=== PATIENT | male | born 1965 ===

== ENCOUNTER 2019-06-29 08:23 | Day surgery (SDC) | payer OTHER ==
[2019-06-29] MEDS ORDERED: PROPOFOL 10 MG/ML VIAL IV ONE (08:24)
[2019-06-29] MEDS ORDERED: FENTANYL PF 100MCG/2ML VIAL IV ONE (08:24)
[2019-06-29] MEDS ORDERED: LIDOCAINE 2% MDV (20MG/ML) 20ML VIAL IV ONE (08:24)
--- NOTE | 2019-06-30 12:42 | Operative Note ---
OPERATIONS: 1. ESOPHAGOGASTRODUODENOSCOPY. 2. COLONOSCOPY. PREOPERATIVE DIAGNOSES: 1. Chronic gastroesophageal reflux disease. 2. Colon cancer screening. POSTOPERATIVE DIAGNOSES: 1. Irregular Z line, rule out short-segment Hurley's. 2. Transverse colon polyp. PREPARATION QUALITY: Good to excellent. ESTIMATED BLOOD LOSS: Minimum. SPECIMENS: Transverse colon polyp. PROCEDURE: After informed consent was obtained from the patient, he was placed in the left lateral decubitus position in the endoscopy suite, sedated and monitored by the department of anesthesia. A well-lubricated [id number] gastroscope was placed in the posterior oropharynx under direct visualization and passed to the proximal esophagus. The endoscope was advanced through the proximal, mid, and distal esophagus. The GE junction was irregular suggestive of possible short-segment Hurley's. There were no ulcers, erosions, strictures, varices, or mass lesions seen. The gastric body, antrum, pylorus, duodenal bulb, and sweep were unremarkable. J-turn views of the proximal stomach were unrevealing. The endoscope was then straightened. GE junction biopsies were obtained. The endoscope was removed from the patient with no new findings noted. Digital rectal exam was unremarkable. A well-lubricated [id number] colonoscope was inserted into the rectum and advanced to the cecum. The cecum and cecal bulb were unremarkable. The ileocecal valve and appendiceal orifice were unremarkable. The ascending colon was unrevealing. The transverse colon revealed a 5-6 mm sessile polyp removed with a cold snare and retrieved. The remainder of the transverse colon, descending colon, sigmoid colon, and rectum were unrevealing. J-turn views of the anorectum were unremarkable. The endoscope was straightened, the rectal ampulla deflated, and the endoscope was removed. RECOMMENDATIONS: I would suggest the patient resume his medications and diet. Further surveillance recommendations related to possible Hurley's and colon polyp will be based on histology. If Hurley's is found, he should continue daily PPI and undergo repeat upper endoscopy in 3 years. If the polyp is adenomatous, he will require repeat colonoscopy in 3-5 years. As always, thank you for allowing me to participate in the healthcare of your patients. GISSEL
== END 2019-06-29 09:45 | disposition home or self-care (01) ==
LOC: HOP 08:23
PROVIDERS: ATTEND Internal Medicine Gastroenterology
DX: Z12.11 Encounter for screening for malignant neoplasm of colon (principal); D12.3 Benign neoplasm of transverse colon; K21.9 Gastro-esophageal reflux disease without esophagitis; K31.89 Other diseases of stomach and duodenum; K29.50 Unspecified chronic gastritis without bleeding; M54.9 Dorsalgia, unspecified